=== PATIENT | male | born 1965 | race Caucasian/White ===

== ENCOUNTER → 2017-10-02 13:50 | Outpatient (CLI) | payer OTHER, SELFPAY ==
--- NOTE | 2017-10-02 14:50 | TISS_PTH ---
PATIENT: AVERY KILGORE [facility] U#:[id number] AGE/SX: 59/M ROOM: RE10/02/[address]: Dr. Easton Russo, MARIANELA : 1965 BED: DIS: SPEC #: [id number] RECD: 10/02/17 15:37 STATUS: RONNA RAMON #: [id number] TU: 10/02/17 14:[address]: Easton Russo DEPT: SURGICAL PATHOLOGY RECD BY: Mary Carmen Vega Tissues: Mandible, NOS Procedures: Surgery Specimen Level IV HEADER OPERATION: Biopsy, left mandible PRE-OP DIAGNOSIS: Not noted TISSUE SUBMITTED: Left mandible MICROSCOPIC DIAGNOSIS Skin and soft tissue of left mandible, excision: Benign squamous epithelium overlying fibrous tissue with minute fragments of unremarkable bone and rare bacterial colonies. Mild chronic inflammation. No evidence of malignancy. 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 Clinical correlation is suggested.. Reference is made to the patient?s left mandible excision from 2012 ([id number]) in which changes consistent with odontogenic keratocyst was identified. The present specimen contains only rare desquamated squamous epithelial cells. No dysplasia or malignancy is seen. Clinical correlation is suggested. Case has been reviewed in consultation with Dr. Mcadams who concurs with the above diagnosis. CRISTAL:MANPREET MICROSCOPIC DESCRIPTION Slides are reviewed. GROSS DESCRIPTION Received in fixative is one container labeled with the patient's name and designated left mandible. The specimen consists of multiple pieces of soft tissue that in aggregate measure 1.5 x 1 x 0.2 cm. The entire specimen is submitted in one cassette. / MANPREET:luther 10/05/17 TC:3 CPT: 78002
== END ==
PROVIDERS: Visit Provider Dentist Oral and Maxillofacial Surgery
DX: L08.89 Other specified local infections of the skin and subcutaneous tissue (principal)
CPT/HCPCS: 88305

== ENCOUNTER → 2017-12-18 07:12 | Outpatient (CLI) | payer OTHER, SELFPAY | PROVIDERS: Family Provider Family Medicine; PCP Family Medicine; Visit Provider Family Medicine | DX: C61 Malignant neoplasm of prostate (principal) | CPT/HCPCS: 36415; 84153; G0103 ==

== ENCOUNTER → 2018-07-15 10:20 | Outpatient (CLI) | payer OTHER, SELFPAY ==
[2015-11-11 20:05] VITALS: BMI 27.1
[2018-07-15 12:33] LABS: PSA,Total- Diagnostic 3.47 ng/mL (0.0-4.0)
== END ==
PROVIDERS: Family Provider Family Medicine; PCP Family Medicine; Visit Provider Family Medicine
DX: C61 Malignant neoplasm of prostate (principal)
CPT/HCPCS: 36415; 84153

== ENCOUNTER → 2021-07-18 10:02 | Outpatient (CLI) | payer OTHER, SELFPAY ==
[2021-07-18 12:21] LABS: Absolute Lymphocyte Count 1.71 X10^3/uL (0.83-4.51); Absolute Neutrophil Count 2.9 X10^3/uL (2.0-7.7); Basophil# 0.02 X10^3/uL; Basophil% 0.4 % (0-1); Eosinophil# 0.04 X10^3/uL; Eosinophils% 0.8 % (0-5); Hematocrit 47.2 % (40-54); Hemoglobin 16.2 g/dL (13.0-16.5); Lymphocyte # 1.71 X10^3/ul (0.83-4.51); Lymphocyte % 34.1 % (19-41); Mean Corp Hgb Conc 34.3 g/dL (32-36); Mean Corpuscular Hgb 30.3 pg (27.0-32.0); Mean Corpuscular Volume 88.2 fL (80-94); Mean Platelet Vol. 10.6 fl (6.2-12.0); Monocyte# 0.35 X10^3/uL; NRBC Flagged by Analyzer 0 % (0-5); Neutrophil # 2.87 X10^3/uL (2.7-7.7); Neutrophil % 57.3 % (47-70); Platelet Count 242 K/mm3 (150-450); RBC Distribution Width CV 11.9 % (11.6-14.6); RBC Distribution Width SD 38.1 fl (35.1-43.9); Red Blood Count 5.35 M/mm3 (4.6-6.2)
[2021-07-18 12:54] LABS: BUN 16 mg/dL (7-18); Creatinine, Serum 1.04 mg/dL (0.70-1.30); Glucose 91 mg/dL (74-106)
[2021-07-18 12:55] LABS: ALB/GLOB Ratio 0.9 RATIO (0.9-2.4); AST(SGOT) 14 U/L (15-37); Alanine Aminotransfer ALT/SGPT 24 U/L (16-61); Albumin, Serum 3.7 g/dL (3.2-5.0); Alkaline Phosphatase 64 U/L (45-117); Anion Gap 6 (5-15); BUN/Creat Ratio 15.4 RATIO (10-20); Calcium,Total 9.1 mg/dL (8.5-10.1); Chloride 107 mmol/L (98-107); Cholesterol 227 mg/dL (200); EST Glomerular Filtration Rate 78 mL/min (>60); Est Glom Filt Rate - Afr Amer 94 mL/min (>60); Globulin 3.9 g/dL (2.2-4.2); High Density Lipoprotein 47 mg/dL; Potassium 4.1 mmol/L (3.5-5.1); Protein, Total 7.6 g/dL (6.4-8.2); Sodium Level 141 mmol/L (136-145); Thyroid Stim Hormone (TSH) 0.83 uIU/mL (0.358-3.74); Triglycerides 163 mg/dL; Very Low Density Lipoprotein 33 mg/dL (5-40)
== END ==
PROVIDERS: PCP Family Medicine; Referring Provider Family Medicine; Visit Provider Family Medicine
DX: E78.00 Pure hypercholesterolemia, unspecified (principal); E55.9 Vitamin D deficiency, unspecified
CPT/HCPCS: 36415; 80053; 80061; 82306; 84443; 85025

== ENCOUNTER 2022-04-05 11:29 | Emergency (ER) | payer OTHER, SELFPAY ==
[2022-04-05 11:30] VITALS: BP 126/96; PULSE 89; RESP 16; TEMP 36; O2SAT 100; BMI 27.8
--- NOTE | 2022-04-05 11:38 | ED.VIS.LOWEX ---
HPI History of Present Illness Chief Complaint: Laceration Informant: patient Narrative Narrative: Patient has a chainsaw injury to the left anterior lateral knee. Last tetanus was June 2021. Not on anticoagulation. Nothing really makes better or worse. PFSH PFSH Medical History no medical history Home Medications ciprofloxacin HCl 500 mg tablet 500 mg PO BID 11/11/15 [History Last Taken Unknown] sulfamethoxazole 800 mg-trimethoprim 160 mg tablet 1 tab PO BID ##20 11/11/15 [Rx Last Taken Unknown] tamsulosin 0.4 mg capsule 0.4 mg PO DAILY 11/11/15 [History Last Taken Unknown] cephalexin 500 mg capsule 500 mg PO Q6 #40 caps 04/05/22 [Rx Last Taken Unknown] Allergy/AdvReac Type Severity Reaction Status Date / Time meperidine HCl [From Demerol] AdvReac Nausea Verified 04/05/22 11:29 Family History no significant family his Surgical History no surgical history Social History Smoking Status: Never smoker ROS ROS ED Constitutional Constitutional ED: Denies fever(s) Cardiovascular Cardiovascular: Denies chest pain Respiratory/Chest Respiratory/Chest: Denies cough or dyspnea Gastrointestinal Gastrointestinal: Denies nausea or vomiting Musculoskeletal Musculoskeletal: Reports other Details: Lacerations left knee. Integumentary Reports other Details: Laceration left knee Hematologic/Lymphatic Hematologic/Lymphatic: Denies easy bleeding or easy bruising Allergic/Immunologic Allergic/Immunologic ED: Denies urticaria EXAM Physical Exam Const Vital Signs: 04/05/22 11:30 Temperature 96.8 F L Temperature Source Temporal Pulse Rate 89 Respiratory Rate 16 Blood Pressure 126/96 H Blood Pressure Mean 106 Pulse Ox 100 Oxygen Delivery Method Room Air Positive well nourished and well developed General Appearance ED: well developed and NAD HEENT normocephalic and atraumatic Chest Wall inspection of chest normal Resp normal respiratory effort Extremity Extremity Narrative: Patient has laceration to the left anterior lateral knee. We are going to clean this up more. Appears to be 4 cm in length. No active bleeding. Extensor mechanism appears intact. There is no clear fluid or joint fluid appearance coming from the wound at all. There is no effusion or swelling in the knee. No pain with range of motion. Neuro oriented x3 Psych mental status grossly normal Skin Skin Narrative: Laceration as above. 4 cm MDM MDM MDM Narrative Medical decision making narrative: Procedure: Suture laceration: The area around the wound was sterilely scrubbed prepped and draped. It was anesthetized with 4 cc of 1% lidocaine with epinephrine locally. It was then copiously scrubbed and irrigated multiple times. I looked at this wound in all areas. I do not see bony involvement but can certainly not rule it out. No sign of fluid coming from the joint or joint invasion. The angles would make it very unlikely to have joint invasion. It ends up that this is 1 main laceration with several others that come and meet mostly at the bottom. It was jagged and irregular mostly on the lower portion of the laceration. For this reason sutures have to vary their with considerably depending on how many lacerations they crossed. A total of seven 4-0 Ethilon sutures were used. I did irrigation in between these. He tolerated this well. We will get him on antibiotics because of the proximity to the knee and possible bony involvement. We discussed returning with redness drainage pain. The should stay in longer and closer to 14 days due to the tension they would be under with bending of the knee. Radiography Diagnostic Testing: Clinical Impression(s) from Imaging Studies Knee X-Ray 04/05/22 11:45 IMPRESSION: Degenerative arthrosis. Electronically Signed: Zackary Sousa MD at 12:02 EDT , Discharge Plan Triage Chief Complaint: Laceration ED Provider: Addy Schuler Dx/Rx/DC Orders Clinical Impression: Contact with chainsaw as cause of accidental injury, Laceration of knee, left, complicated Instructions: ED Laceration: All Closures Prescriptions: New cephalexin [cephalexin] 500 mg capsule 500 mg PO Q6 Qty: 40 0RF No Action ciprofloxacin HCl 500 MG tablet 500 mg PO BID tamsulosin 0.4 MG capsule 0.4 mg PO DAILY sulfamethoxazole-trimethoprim 1 TABLET tablet 1 tab PO BID Qty: 20 0RF Primary Care Provider: Tyron Jack Referrals: Tyron Jack MD [Primary Care Provider] - 10-14 Days suture removal Disposition Disposition: Home, Self Care
[2022-04-05] MEDS: Cephalexin 250 MG Capsule 500 MG PO (11:43)
--- NOTE | 2022-04-05 11:45 | RAD_ITS ---
STUDY: X-RAY - LEFT KNEE REASON FOR EXAM: Male, 56 years old. trauma, chainsaw TECHNIQUE: 3 view(s) of the knee. COMPARISON: None. FINDINGS: Normal visualized distal femur. Normal visualized proximal tibia and fibula. Normal proximal tibiofibular articulation. There is mild degenerative arthrosis of the medial femorotibial compartment. Normal lateral femorotibial compartment. There is mild degenerative arthrosis of the patellofemoral articulation. The soft tissue structures are unremarkable. RAD/Knee 3 Views IMPRESSION: Degenerative arthrosis. Electronically Signed: Zackary Sousa MD at 12:02 EDT ,
== END 2022-04-05 12:31 | disposition home or self-care (01) ==
LOC: ED 12:23
PROVIDERS: Emergency Provider Emergency Medicine; PCP Family Medicine; Visit Provider Emergency Medicine
DX: S81.012A Laceration without foreign body, left knee, initial encounter (principal); W29.3XXA Contact with powered garden and outdoor hand tools and machinery, initial encounter
CPT/HCPCS: 12032; 73562; 99284

== ENCOUNTER → 2022-07-22 | Outpatient (CLI) | payer OTHER, SELFPAY ==
[2022-07-22 10:33] LABS: Vitamin D,25 Hydroxy 48.2 ng/mL
[2022-07-22 10:38] LABS: ALB/GLOB Ratio 1.1 RATIO (0.9-2.4); AST(SGOT) 15 U/L (15-37); Alanine Aminotransfer ALT/SGPT 26 U/L (16-61); Albumin, Serum 3.7 g/dL (3.2-5.0); Alkaline Phosphatase 63 U/L (45-117); Anion Gap 7 (5-15); BUN 16 mg/dL (7-18); BUN/Creat Ratio 16.7 RATIO (10-20); Chloride 108 mmol/L (98-107); Cholesterol 238 mg/dL (200); Creatinine, Serum 0.96 mg/dL (0.70-1.30); EST Glomerular Filtration Rate 85 mL/min (>60); Est Glom Filt Rate - Afr Amer 103 mL/min (>60); Globulin 3.3 g/dL (2.2-4.2); Glucose 98 mg/dL (74-106); High Density Lipoprotein 55 mg/dL; Potassium 4.3 mmol/L (3.5-5.1); Sodium Level 141 mmol/L (136-145); Triglycerides 165 mg/dL; Very Low Density Lipoprotein 33 mg/dL (5-40)
== END | disposition home or self-care (01) ==
LOC: MFPLAB 08:59
PROVIDERS: PCP Family Medicine; Visit Provider Family Medicine
DX: E78.00 Pure hypercholesterolemia, unspecified (principal); E55.9 Vitamin D deficiency, unspecified
CPT/HCPCS: 36415; 80053; 80061; 82306

== ENCOUNTER → 2022-10-08 | Outpatient (CLI) | payer OTHER, SELFPAY ==
--- NOTE | 2022-10-08 08:23 | RAD_ITS ---
STUDY: X-RAY - RIGHT CALCANEUS REASON FOR EXAM: Male, 57 years old. HEEL PAIN TECHNIQUE: 2 view(s) of the calcaneus were obtained. COMPARISON: None. FINDINGS: Normal visualized calcaneus. There is enthesophyte formation of the posterior superior calcaneus at the site of insertion of the Achilles tendon. There is a plantar calcaneal spur. RAD/Calcaneus min 2 Views IMPRESSION: Calcaneal spurs, no demonstrated fracture or suspicious osseous lesion. Electronically Signed: Moise Linn MD at 9:39 EDT ,
--- NOTE | 2022-10-08 08:23 | RAD_ITS ---
STUDY: X-RAY - LEFT CALCANEUS REASON FOR EXAM: Male, 57 years old. HEEL PAIN TECHNIQUE: 2 view(s) of the calcaneus were obtained. COMPARISON: None. FINDINGS: Normal visualized calcaneus. There is enthesophyte formation of the posterior superior calcaneus at the site of insertion of the Achilles tendon. There is a plantar calcaneal spur. RAD/Calcaneus min 2 Views IMPRESSION: Calcaneal spurs, no demonstrated fracture or joint space abnormality Electronically Signed: Moise Linn MD at 9:39 EDT ,
== END | disposition home or self-care (01) ==
LOC: MTRAD 08:20
PROVIDERS: PCP Family Medicine; Referring Provider Family Medicine; Visit Provider Family Medicine
DX: M79.671 Pain in right foot (principal); M79.672 Pain in left foot
CPT/HCPCS: 73650

== ENCOUNTER → 2023-09-09 | Outpatient (CLI) | payer OTHER, SELFPAY ==
--- OUTSIDE RECORDS SUMMARY | 2023-09-09 08:53 | XMS RPT_ITS | CCD ---
Author Name Unknown Address [address] [place] [address] Organization [facility] Care Team Providers Care Attendance Officer Name Role Phone Janice White Primary Care Provider JANICE WHITE Primary Care Unavailable GERALD RICH Referring Unavailable JANICE WHITE Primary Care Unavailable GERALD RICH Referring Unavailable GERALD RICH Referring Unavailable GERALD RICH Attending Unavailable JANICE WHITE Primary Care Unavailable Allergies Allergy Classification Reported Allergen(s) Allergy Type Date of Onset Reaction(s) Facility (4 sources) Meperidine; Translations: [MEPERIDINE] Drug Allergy 01-07-2021 Other: See Comments [facility] Medications Completed/Discontinued Medications Medication Drug Class(es) Dates Sig (Normalized) Sig (Original) cholecalciferol, vitamin D3, (VITAMIN D3 ORAL) (3 sources) take 2000 [IU] by mo uth once daily cholecalciferol, vitamin D3, (VITAMIN D3 ORAL) Take 2,000 Units by mouth once daily. 0 Active Problems Active Problems Problem Classification Problem Date Documented Da te Episodic/Chronic Cancer of prostate (5 sources) Malignant tumor of prostate; Translations: [Malignant neoplasm of prostate] Onset: 08-15-2016 01-24-2021 Chronic Other male genital disorders (1 source) Erectile dysfunction following radical prostatectomy; Translations: [Erectile dysfunction following radical prostatectomy] Onset: 09-12-2022 Chronic Past or Other Problems Problem Classification Problem Date Documented Da te Episodic/Chronic Inflammatory conditions of male genital organs (3 sources) Prostatitis; Translations: [Inflammatory disease of prostate, unspecified] Onset: 03-28-2016 03-28-2016 Episodic Other and unspecified benign neoplasm (3 sources) Lipoma (clinical); Translations: [Benign lipomatous neoplasm, unspecified] Onset: 11-16-2012 11-16-2012 Episodic Other screening for suspected conditions (not mental disorders or infectious disease) (6 sources) Raised prostate specific antigen; Translations: [Elevated prostate specific antigen [PSA]] Onset: 03-28-2016 12-17-2020 Episodic Other skin disorders (3 sources) Mass of skin; Translations: [Localized swelling, mass and lump, unspecified] Onset: 11-16-2012 11-16-2012 Episodic Residual codes; unclassified (3 sources) Family history of prostate cancer; Translations: [Family history of malignant neoplasm of prostate] Onset: 03-28-2016 03-28-2016 Episodic Results Test Name Value Interpretation Reference Range Facil ity Encounters Encounter Date Encounter Type Care Provider Facility Start: 09-05-2023 End: 09-06-2023 ambulatory JANICE Amezquita [facility] Facility:[facility] Start: 02-28-2023 End: 03-01-2023 ambulatory JANICE CINDY Facility:[facility] Start: 09-12-2022 End: 09-12-2022 ambulatory GERALD RICH Facility:[facility] Start: 03-02-2022 Orders Only Gerald simpson PA-C Work Phone: Urology Procedures Date Procedure Procedure Detail Performing Clinician Start: 01-07-2021 Antibody screen Start: 05-28-2016 Colonoscopy Gerald woods PA-C Work Phone: Plan of Treatment Date Care Activity Detail Author Start: 03-01-2027 PROSTATE CANCER SCREENING DISCUSSION PROSTATE CANCER SCREENING DISCUSSION [facility] Start: 11-30-2026 PROSTATE CANCER SCREENING DISCUSSION PROSTATE CANCER SCREENING DISCUSSION [facility] Start: 05-28-2026 Colonoscopy COLONOSCOPY [facility] Start: 05-28-2026 COLORECTAL CANCER SCREENING COLORECTAL CANCER SCREENING [facility] Start: 01-26-2024 DIABETES SCREEN DIABETES SCREEN [facility] Start: 09-02-2022 End: 11-02-2022 Prostate specific Ag [Mass/volume] in Serum or Plasma PSA/PROSTSPECAG DIAG Lab Routine Prostate cancer (HCC) Expected: 09/02/2022 (Approximate), Expires: 11/02/2022 [facility] Work Phone: Payers Date Payer Category Payer Unknown 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 MMO [id number] 2017-Present [phone] [address] [address] [place] [address] Indemnity [id number] 2017 Unknown 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 [id number] 2017-Present [phone] [address] [address] [place] [address] Indemnity [id number] 2017 Unknown [id number] Social History Date Type Detail Facility Start: 03-28-2016 Tobacco smoking stat us RIIS Never smoked tobacco [facility] Start: 12-06-2021 Alcohol intake Current drinke r of alcohol (finding) [facility] Start: 03-28-2016 History SDOH Alcohol Comment occs [facility] Start: 1965 Sex Assigned At Not on file C [facility] Start: 03-28-2016 Tobacco use and exposure Smokeless tobacco non-user [facility] Work Phone: Start: 02-19-2022 End: 03-01-2022 Exposure to SARS-CoV-2 (event) Not sure [facility] Progress note 09-12-2022 Note Date & Type Note Facility 09-12-2022 Note HNO ID: [id number] Author: Gerald Rich PA-C Service: ? Author Type: Physician Label Stamper Type: Progress Notes Filed: 09/12/2022 12:52 PM Note Text: VIRTUAL VISIT PROGRESS NOTE This is a virtual visit using [employer] video visit. It required patient-provider interaction for the medical decision making as documented below. CHIEF COMPLAINT: Patient presents with: Follow Up Prostate Cancer PATIENT INFO: Parveen Barker 57 year old REFERRING M.D.: Gerald Rich [address] [facility] [address] PCP: Janice White MD UROLOGY DIAGNOSES: Prostate cancer (hcc) (primary encounter diagnosis) Erectile dysfunction following radical prostatectomy CHIEF COMPLAINT: Follow up HPI: 57 y/o male with prostate CA s/p RALP 01/25/21. FINAL DIAGNOSIS Prostate and seminal vesicles, radical prostatectomy: - Prostatic adenocarcinoma, Jesica score 3+3=6 (Grade Group 1). - Confined to the prostate (pT2). - Surgical margins are negative. Doing well. Mild BEA: Leaks when he is exercising and will wear pads only then. No dysuria or gross hematuria. Drinking alcohol also may cause him to leak more as he feels his muscles may be more relaxed. ED: 60% engorgement. Stopped taking Tadalafil 5 mg. Tried Tadalafil 20 mg 2-3x with some improvement. Erections not firm enough for penetration. 60% without the MADDI. Better with MADDI 90%. Tried Sildenafil with minimal effect. Caused flushing. Did not like. Not firm enough for penetration. PSA (ng/mL) Date Value 09/06/2022 <0.02 03/01/2022 <0.02 11/30/2021 <0.02 08/24/2021 <0.02 04/20/2021 <0.03 12/01/2020 4.81 04/21/2020 3.98 Duration: 2020 Location: Male - Prostate Severity: 0 Context: pathology , labs Qualilty: N/A Timing: N/A Improved by: Worsened by: No Change by: Associated sign AND symptoms: na Patient denies dysuria and gross hematuria. Patient denies fever, chills, rigors, nausea, vomiting and malaise. Patient denies abdominal and flank pain. NO CHANGE IN PMH, PSH, SH, FH AND ROS FROM 12/06/21. MEDICAL HISTORY: PAST MEDICAL HISTORY Diagnosis Date Prostatitis SURGICAL HISTORY: PAST SURGICAL HISTORY Procedure Laterality Date APPENDECTOMY 1983 EXCISION TUMOR SOFT TISS FACE/SCALP SUBQ 2+CM 11/27/12 Exc. lipoma left occipital scalp- benign PAST SURGICAL HISTORY OF Left 1989 lipoma removed from left hand VASECTOMY UNI/BI SPX W/POSTOP SEMEN EXAMS 1996 SOCIAL HISTORY: Social History Tobacco Use Smoking status: Never Smokeless tobacco: Never Substance Use Topics Alcohol use: Yes Comment: occs Drug use: No MEDS: Current Outpatient Medications on File Prior to Visit Medication Sig Tadalafil (CIALIS) 5 mg tablet One tablet daily sildenafil (VIAGRA) 100 mg tablet Take 1 tablet by mouth 1 hour prior to sexual activity. oxybutynin (DITROPAN) 5 mg tablet Take 1 tablet by mouth three times daily as needed. (Patient not taking: Reported on 09/03/2021 ) docusate sodium (COLACE) 100 mg capsule Take 1 capsule by mouth twice daily. (Patient not taking: Reported on 09/03/2021 ) ciprofloxacin HCl (CIPRO) 500 mg tablet Take 1 tablet by mouth twice daily. start 01/30/21 the night before saravia removal (Patient not taking: Reported on 09/03/2021 ) gabapentin (NEURONTIN) 300 mg capsule Take 1 capsule by mouth once daily for 5 days. cholecalciferol, vitamin D3, (VITAMIN D3 ORAL) Take 2,000 Units by mouth once daily. ubidecarenone (COENZYME Q10) 100 mg tab Take by mouth once daily. (Patient not taking: Reported on 09/03/2021 ) No current facility-administered medications on file prior to visit. PHYSICAL EXAMINATION: VIDEO EXAM: (if completed, performed via video enabled technology) GENERAL: alert and appropriate, in no distress, well-hydrated, well nourished, and happy, smiling, interactive HEAD: normocephalic, no abnormality or lesion noted EYES: no injection and visual acuity is grossly normal EARS: hearing grossly normal NOSE: external nose normal without rhinorrhea RESPIRATORY: breathing non-labored CHEST: equal chest rise with normal respiratory effort NEUROLOGIC: no obvious deficit DATA/OR LABS TO BE REVIEWED: (Simple=1 data point; Complex= 2 or more) PSA (ng/mL) Date Value 09/06/2022 <0.02 03/01/2022 <0.02 11/30/2021 <0.02 08/24/2021 <0.02 04/20/2021 <0.03 12/01/2020 4.81 04/21/2020 3.98 08/06/2019 3.63 01/22/2019 2.87 08/15/2016 4.01 Creatinine (mg/dL) Date Value 01/25/2021 1.05 01/07/2021 1.02 01/22/2019 1.00 Hematocrit (%) Date Value 01/25/2021 44.1 01/07/2021 46.1 No results found for: TESTOST Additional data reviewed: labs and pathology RADIOLOGY: the patient's films were personally reviewed by me and revealed n/a Risk of complication and/or Morbidity or Mortality: HIGH MEDICAL DECISION MAKING: IMPRESSION: (Diagnostic Possibilities) New or Established 1) Prostate CA 57 year old male with history of prostate (more content not included)... [facility] Clinical Note 01-25-2021 Note Date & Type Note Facility 01-25-2021 Note HNO ID: [id number] Author: Parveen Spence APRN.BEE RANCHER Service: Anesthesiology Author Type: Nurse Financial Controller Type: Anesthesia Procedure Notes Filed: 01/25/2021 7:59 AM Note Text: ANESTHESIOLOGY PROCEDURE NOTE PIV General Information Procedure Start Time/Medication Administration: 01/25/2021 7:50 AM Patient Location: OR Staffing Performed by: anesthesiologist Preparation Sterility Technique Not Completely Performed Due to Extreme Emergency: Yes Site Prep: Chloraprep Procedure Details Indication: need for IV access Needle Size/Type: 18 gauge angiocath Orientation: Right Location: Hand Imaging Guidance Used: No SIGNATURE: Parveen Spence APRN.CRNA PATIENT NAME: Parveen Barker DATE: January 25, 2021 TIME: 7:59 AM CSN: [id number] [facility] Clinical Note 01-25-2021 Note Date & Type Note Facility 01-25-2021 Note HNO ID: [id number] Author: Parveen Spence APRN.BEE RANCHER Service: Anesthesiology Author Type: Nurse Financial Controller Type: Anesthesia Procedure Notes Filed: 01/25/2021 7:59 AM Note Text: ANESTHESIOLOGY PROCEDURE NOTE Airway General Information Procedure Start Time/Medication Administration: 01/25/2021 7:47 AM Patient location during procedure: OR Timeout Performed Pre-procedure: timeout performed Consent Obtained: Yes Patient identity confirmed: arm band and patient Staffing BEE RANCHER: Parveen Spence APRN.BEE RANCHER Performed by: CAL Indications and Patient Condition Preoxygenated: yes Patient position: sniffing Manual In-Line Stabilization: No Difficult Mask: No Indications for airway management: anesthesia anesthesia circuit Method: asleep Cricoid Pressure: No Final Airway Details Final airway type: endotracheal airway Final Endotracheal Airway: ETT Cuffed: yes Successful intubation technique: direct laryngoscopy Endotracheal tube insertion site: oral Blade: Zaid Blade size: #4 ETT size (mm): 7.5 Measured from: lips Measurement (cm): 23 Placement verified by: chest auscultation and capnometry Cormack-Lehane Classification: grade I - full view of glottis Number of attempts at approach: 1 Failed airway: no Unrecognized esophageal intubation: no Airway not difficult SIGNATURE: Parveen Spence APRN.CRNA PATIENT NAME: Parveen Barker DATE: January 25, 2021 TIME: 7:58 AM CSN: [id number] [facility] Evaluation note Note Date & Type Note Facility documented in this encounter [facility] Summary Purpose Family History No Family History Records FoundNo Family History Records Found Advance Directives No Advanced Directives Records FoundDocuments on File Type Date 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 Advance Directive(s) 01/08/2021 1:42 PM Advance Directive(s) 05/28/2016 2:26 PM Additional Source Comments (unrecognized sect ion and content) No Status Records FoundNo Status Records Found INFORMATION SOURCE (unrecogn ized section and content) DATE CREATED AUTHOR AUTHOR'S ORGANIZ ATION 09/07/2023 [facility] Source Comments (unrecognize d section and content) In the event this informatio n is protected by the Federal Confidentiality of Alcohol and Drug Abuse Patient Records regulations: The Federal rules restrict any use of the information to criminally investigate or prosecute any alcohol or drug abuse patient.[facility] the event this information is protected by the Federal Confidentiality of Alcohol and Drug Abuse Patient Records regulations: The Federal rules restrict any use of the information to criminally investigate or prosecute any alcohol or drug abuse patient.[facility] the event this information is protected by the Federal Confidentiality of Alcohol and Drug Abuse Patient Records regulations: The Federal rules restrict any use of the information to criminally investigate or prosecute any alcohol or drug abuse patient.[facility] Reason for Visit (unrecogniz ed section and content) Reason Comments Refill Request Care Teams (unrecognized sec tion and content) Attendance Officer Relationship Specialty Start Date End Date Janice White [address] [facility] [address] [place] [address] PCP - General Family Practice 01/09/21 Attendance Officer Relationship Specialty Start Date End Date Janice White [address] [facility] [address] [place] [address] PCP - General Family Practice 01/09/21 FOR RECORDS PERTAINING TO PATIENTS WHO ARE OR HAVE BEEN ENROLLED IN A CHEMICAL DEPENDENCY/SUBSTANCEABUSE PROGRAM, SOME INFORMATION MAY BE OMITTED. This clinical summary was aggregated from multiple sources. Caution should be exercised in using it in the provision of clinical care. This summary normalizes information from multiple sources, and as a consequence, information in this document may materially change the coding, format and clinical context of patient data. In addition, data may be omitted in some cases. CLINICAL DECISIONS SHOULD BE BASED ON THE PRIMARY CLINICAL RECORDS. [facility] [facility]. provides no warranty or guarantee of the accuracy or completeness of information in this document.
[2023-09-09 10:06] LABS: Absolute Lymphocyte Count 1.88 X10^3/uL (0.83-4.51); Basophil# 0.03 X10^3/uL; Basophil% 0.6 % (0-1); Eosinophil# 0.04 X10^3/uL; Eosinophils% 0.7 % (0-5); Hematocrit 47.9 % (40-54); Hemoglobin 16.1 g/dL (13.0-16.5); Lymphocyte # 1.88 X10^3/ul (0.83-4.51); Lymphocyte % 34.9 % (19-41); Mean Corp Hgb Conc 33.6 g/dL (32-36); Mean Corpuscular Hgb 29.8 pg (27.0-32.0); Mean Corpuscular Volume 88.5 fL (80-94); Mean Platelet Vol. 10.6 fl (6.2-12.0); Monocyte# 0.41 X10^3/uL; Monocyte% 7.6 % (0-10); NRBC Flagged by Analyzer 0 % (0-5); Neutrophil # 3.01 X10^3/uL (2.7-7.7); Platelet Count 250 K/mm3 (150-450); RBC Distribution Width CV 11.8 % (11.6-14.6); RBC Distribution Width SD 38.3 fl (35.1-43.9); Red Blood Count 5.41 M/mm3 (4.6-6.2); White Blood Count 5.4 K/mm3 (4.4-11.0)
[2023-09-09 10:33] LABS: Vitamin D,25 Hydroxy 63.4 ng/mL
[2023-09-09 10:34] LABS: ALB/GLOB Ratio 1.1 RATIO (0.9-2.4); AST(SGOT) 14 U/L (15-37); Alanine Aminotransfer ALT/SGPT 18 U/L (16-61); Albumin, Serum 3.8 g/dL (3.2-5.0); Alkaline Phosphatase 62 U/L (45-117); Anion Gap 6 (5-15); BUN 15 mg/dL (7-18); BUN/Creat Ratio 13.6 RATIO (10-20); Calcium,Total 9.2 mg/dL (8.5-10.1); Chloride 108 mmol/L (98-107); Cholesterol 201 mg/dL (200); EST Glomerular Filtration Rate 73 mL/min (>60); Est Glom Filt Rate - Afr Amer 88 mL/min (>60); Globulin 3.6 g/dL (2.2-4.2); Glucose 102 mg/dL (74-106); High Density Lipoprotein 49 mg/dL; Potassium 4.4 mmol/L (3.5-5.1); Protein, Total 7.4 g/dL (6.4-8.2); Sodium Level 142 mmol/L (136-145); Triglycerides 142 mg/dL; Very Low Density Lipoprotein 28 mg/dL (5-40)
== END | disposition home or self-care (01) ==
LOC: MFPLAB 08:34
PROVIDERS: PCP Family Medicine; Visit Provider Family Medicine
DX: E55.9 Vitamin D deficiency, unspecified (principal); E78.00 Pure hypercholesterolemia, unspecified
CPT/HCPCS: 36415; 80053; 80061; 82306; 85025

== ENCOUNTER → 2024-09-13 | Outpatient (CLI) | payer OTHER, SELFPAY ==
[2024-09-13 10:33] LABS: Absolute Neutrophil Count 2.6 X10^3/uL (2.0-7.7); Basophil# 0.03 X10^3/uL; Basophil% 0.6 % (0-1); Eosinophil# 0.05 X10^3/uL; Eosinophils% 1.1 % (0-5); Hematocrit 46.8 % (40-54); Hemoglobin 15.8 g/dL (13.0-16.5); Lymphocyte % 36.2 % (19-41); Mean Corp Hgb Conc 33.8 g/dL (32-36); Mean Corpuscular Hgb 30.2 pg (27.0-32.0); Mean Corpuscular Volume 89.3 fL (80-94); Mean Platelet Vol. 10.9 fl (6.2-12.0); Monocyte# 0.36 X10^3/uL; Monocyte% 7.7 % (0-10); NRBC Flagged by Analyzer 0 % (0-5); Neutrophil # 2.55 X10^3/uL (2.7-7.7); Neutrophil % 54.2 % (47-70); Platelet Count 224 K/mm3 (150-450); RBC Distribution Width SD 39.1 fl (35.1-43.9); Red Blood Count 5.24 M/mm3 (4.6-6.2); White Blood Count 4.7 K/mm3 (4.4-11.0)
[2024-09-13 11:09] LABS: ALB/GLOB Ratio 1.1 RATIO (0.9-2.4); AST(SGOT) 17 U/L (15-37); Alanine Aminotransfer ALT/SGPT 18 U/L (16-61); Albumin, Serum 3.8 g/dL (3.2-5.0); Alkaline Phosphatase 61 U/L (45-117); Anion Gap 8 (5-15); BUN 12 mg/dL (7-18); BUN/Creat Ratio 11.4 RATIO (10-20); Chloride 107 mmol/L (98-107); Cholesterol 199 mg/dL (200); Creatinine, Serum 1.05 mg/dL (0.70-1.30); EST Glomerular Filtration Rate 76 mL/min (>60); Est Glom Filt Rate - Afr Amer 92 mL/min (>60); Globulin 3.4 g/dL (2.2-4.2); Glucose 102 mg/dL (74-106); High Density Lipoprotein 52 mg/dL; Potassium 4.5 mmol/L (3.5-5.1); Protein, Total 7.2 g/dL (6.4-8.2); Sodium Level 141 mmol/L (136-145); Triglycerides 110 mg/dL; Very Low Density Lipoprotein 22 mg/dL (5-40)
[2024-09-13 12:12] LABS: Hemoglobin A1c 5.4 % (3.8-5.6)
[2024-09-15 15:37] LABS: Vitamin D,25 Hydroxy 72.2 ng/mL
== END | disposition home or self-care (01) ==
LOC: MFPLAB 08:57
PROVIDERS: PCP Family Medicine; Referring Provider Family Medicine; Visit Provider Family Medicine
DX: R73.09 Other abnormal glucose (principal); E55.9 Vitamin D deficiency, unspecified; E78.00 Pure hypercholesterolemia, unspecified
CPT/HCPCS: 36415; 80053; 80061; 82306; 83036; 85025